=== PATIENT | female | born 1975 | race Caucasian/White ===

== ENCOUNTER 2022-07-02 09:10 | Outpatient (CLI) | payer OTHER, SELFPAY ==
--- NOTE | 2022-07-02 09:34 | ECG_ITS ---
Measurements Intervals [place] Rate: 78 P: 44 AR: 136 QRS: 84 QRSD: 86 T: 31 QT: 394 QTc: 449 Interpretive Statements SINUS RHYTHM NORMAL ECG NO PREVIOUS ECG AVAILABLE FOR COMPARISON Electronically Signed On 07-02-2022 10:16:25 STONE BRE[employer]ER by Salvador Thompson D.O.
== END 2022-07-02 09:11 | disposition home or self-care (01) ==
PROVIDERS: Visit Provider Nurse Practitioner
DX: E66.9 Obesity, unspecified (principal)
CPT/HCPCS: 93005